=== PATIENT | female | born 1990 | race African-American/Black ===

== ENCOUNTER 2016-09-06 15:53 | Emergency (ER) | payer SELFPAY ==
[~2016-09-06] VITALS: Ht 172.7 cm; Wt 84.4 kg
[~2016-09-06 15:53] MED LIST: ALBU8.5H6; CIPR500T94 PO; PHEN-318 PO; PRED50TA PO
[2016-09-06 15:54] VITALS: BP 123/73
[2016-09-06] MEDS ORDERED: SULF1TAB24 PO (16:10)
[2016-09-06] MEDS ORDERED: TRAM-29 PO (16:10)
--- NOTE | 2016-09-06 16:11 | PHYS DOC ---
Past Medical History Past Medical History: No Pertinent History, Asthma, Hypothyroid Past Surgical History: Tonsillectomy Additional Information: nonsmoker Alcohol Use: Occasionally Drug Use: None Adult General Chief Complaint Chief Complaint: INSECT BITE HPI HPI Patient is a 25 year old female who presents with right buttock abscess for 5 days. She has been able to express a small amount of purulent material from the wound. She denies any fevers. Her PCP is Dr. Kylie Kowalski. Review of Systems Review of Systems Constitutional: Denies fever or chills. [] Musculoskeletal: Denies back pain or joint pain. [] Integument: Denies rash or skin lesions. Reports right buttock abscess. Neurologic: Denies headache, focal weakness or sensory changes. [] Allergies Allergies Allergies Coded Allergies Type Severity Reaction Last Updated Verified No Known Drug Allergies 09/10/13 No Physical Exam Physical Exam Constitutional: Well developed, well nourished, no acute distress, non-toxic appearance. [] HENT: Normocephalic, atraumatic, oropharynx moist. [] Eyes: PERRLA, EOMI, conjunctiva normal, no discharge. [] Skin: Warm, dry, no erythema, no rash. There is a 2x3cm indurated abscess on the right buttock with mild surrounding cellulitis. There is no spontaneous drainage from the wound. Back: No midline tenderness, no CVA tenderness. [] Extremities: No tenderness, ROM intact, no edema. Distal pulses equal bilaterally. [] Neurologic: Alert and oriented X 3, normal motor function, normal sensory function, no focal deficits noted. [] Psychologic: Affect normal, judgement normal, mood normal. [] Current Patient Data Vital Signs Vital Signs Date Time Temp Pulse Resp B/P Pulse Ox O2 Delivery O2 Flow Rate FiO2 09/06/16 15:54 97.9 105 16 100 Room Air 97.9 EKG EKG [] Radiology/Procedures Radiology/Procedures [] Course & Med Decision Making Course & Med Decision Making Pertinent Labs and Imaging studies reviewed. (See chart for details) [] Dragon Disclaimer Dragon Disclaimer This electronic medical record was generated, in whole or in part, using a voice recognition dictation system. Departure Departure Impression: Primary Impression: Abscess of buttock, right Disposition: 01 HOME, SELF-CARE Condition: STABLE Referrals: UNKNOWN PCP NAME (PCP) Patient Instructions: Abscess, [id number] Additional Instructions: You were seen for an abscess on your buttock. It is not ready to be lanced at this time. Please complete all of the prescribed antibiotics, even if the wound is improving. Please take the prescribed pain medication as directed. Do not drive or operate heavy machinery while taking pain medication. Please apply warm compresses to the wound to encourage drainage. Please follow up with your doctor in 2-3 days to have the wound rechecked, sooner if worsening. Return to the emergency department if you have any new or concerning symptoms. Scripts Tramadol Hcl (Ultram)50 Mg [id number] Mg PO Q6H PRN PAIN #20 TAB Prov:RACHEL GARCIA 09/06/16 Sulfamethoxazole/Trimethoprim (Bactrim Ds Tablet)1 Each Tablet1 Tab PO BID #14 TAB Prov:RACHEL GARCIA 09/06/16 RACHEL GARCIA Sep 06, 2016 16:11
== END 2016-09-06 16:16 | disposition home or self-care (01) ==
LOC: ER 15:53
DX: L02.31 Cutaneous abscess of buttock (principal); J45.909 Unspecified asthma, uncomplicated; E03.9 Hypothyroidism, unspecified
CPT/HCPCS: 99283